=== PATIENT | female | born 1945 | race Caucasian/White ===

== ENCOUNTER 2024-03-26 17:15 | Emergency (ER) | payer OTHER, SELFPAY ==
[2024-03-26 17:25] VITALS: BP 144/67
--- NOTE | 2024-03-26 18:33 | ED.GENMED ---
History of Present Illness
General
Chief Complaint: Facial Problem
Source: patient and spouse
Time Seen by Provider: 03/26/24 18:25
Travel History
Have you had any contact with someone who has COVID-19?: No
Do you have any symptoms of coronavirus? Fever > 100 degrees, chills, cough, shortness of breath, sore throat, loss of taste or smell, muscle aches, or headache?: No
History of Present Illness
History of Present Illness:
78-year-old female presents to the emergency room for evaluation after a fall. Patient was attempting to ascend a high curb with her rolling walker when she lost her balance and fell forward. She suffered an injury to her upper lip and front
tooth. She does not take any oral anticoagulants. She not strike her head. Aside from her mouth she has no other complaints.
Past History
Past History
ED Past Medical History: HTN and Hypercholesterolemia
ED Past Surgical History: None
Social History
Tobacco: Non-smoker
Alcohol: Occasional
Personal:
Living: with family
Phy Exam
Physical Exam
Physical Exam:
General: Awake, Alert, Oriented X3. No acute distress.
Vitals: unremarkable
Head: Atraumatic
Mouth: Small superficial laceration noted on the upper lip just to the left of the midline. There is no laceration noted on the buccal mucosa. There is an Mack 1 fracture of tooth #8
Eyes: Pupils equal, EOMI
Throat: Airway intact, no exudates
Neck: Trachea midline, no tenderness palpation of the midline spine. No pain with range of motion
Lungs: Clear and equal b/l
Heart: Regular rate, no murmurs
Abd: Soft, Nontender, No pulsatile mass
Neuro: Nonfocal
Skin: Warm, dry, no rash
Extremities: pulses equal b/l, no edema
Course
Vital Signs
Initial and Last Documented VS:
Initial Vital Signs
Temp Pulse Resp BP Pulse Ox
98.2 F 67 18 144/67 99
03/26/24 17:25 03/26/24 17:25 03/26/24 17:25 03/26/24 17:25 03/26/24 17:25
Last Documented Vital Signs
Temp Pulse Resp BP Pulse Ox
98.2 F 67 18 144/67 99
03/26/24 17:25 03/26/24 17:25 03/26/24 17:25 03/26/24 17:25 03/26/24 17:25
MDM/Problems Addressed
Differential Diagnosis Includes:
Dental fracture, through and through lip laceration, superficial lip laceration
MDM/Problems Addressed:
Patient presents with dental injury and lip injury. She has no evidence of any other significant head trauma. She has no neck pain. Therefore imaging is not indicated in my opinion. Recommend dental follow-up. Tetanus is up-to-date as she had a
tetanus shot about 1 month ago.
*Critical Care Note
Total Time (30-74mins, 75-104mins- exclusive of procedures): Not Applicable
ED Attending Note
-
Portions of this chart may have been created with voice recognition software.� Occasional wrong word or��sound alike� substitutions may have occurred due to the inherent limitations of voice recognition software.
Discharge Plan
Departure
Patient Disposition: Home (Routine Discharge)
Date of Disposition: 03/26/24
Time of Disposition: 18:40
Patient with high blood pressure during this ER visit?: Yes
Condition: Good
Discharge Problem:
Tooth fracture, Abrasion of lip
Instructions: Fractured Tooth (DC), Abrasions ED
Prescriptions:
No Action
sennosides [senna] 8.6 MG tablet
17.2 mg PO HS
trazodone 50 MG tablet
50 mg PO HS
polyethylene glycol 3350 17 GRAMS powder in packet
17 grams PO DAILY
oxycodone-acetaminophen 5 MG/325 MG tablet
1 tab PO Q6HPRN PRN (Reason: back pain)
ascorbic acid (vitamin C) [Vitamin C] 500 MG tablet
500 mg PO DAILY
lidocaine 1 PATCH adhesive patch,medicated
1 patch topical Q12H
losartan [Cozaar] 100 MG tablet
100 mg PO DAILY
rosuvastatin 5 MG tablet
5 mg PO MOWEFR
escitalopram oxalate 5 MG tablet
5 mg PO DAILY
cholecalciferol (vitamin D3) 2,000 UNITS tablet
2,000 units PO DAILY
omega 5-uff-pje-fish oil [Fish Oil] 1 EACH capsule
1 ea PO DAILY
Referrals:
Jenny Veras DO [Family Provider] -
Interventions
Interventions:
*Risk Screen - Suicide Last Done: 03/26/24 18:25
*General Assessment Last Done: 03/26/24 18:25
*Neglect/Abuse Screening Last Done: 03/26/24 18:25
ED- Fall Risk Assessment Last Done: 03/26/24 18:57
*Nursing Disposition Last Done: 03/26/24 18:57
ED- Neurological Assessment Last Done: 03/26/24 18:25
ED-Skin Assessment Last Done: 03/26/24 18:25
Discharge Date and Time
Discharge Date/Time: 03/26/24 18:57
Print Language: LATVIAN
== END 2024-03-26 18:57 | disposition home or self-care (01) ==
LOC: EMR 17:15
PROVIDERS: EMERGENCY PHYSICIAN Emergency Medicine; FAMILY PHYSICIAN Internal Medicine
DX: S02.5XXA Fracture of tooth (traumatic), initial encounter for closed fracture (principal); S00.511A Abrasion of lip, initial encounter; W19.XXXA Unspecified fall, initial encounter; I10 Essential (primary) hypertension
CPT/HCPCS: 99283

== ENCOUNTER 2025-05-20 04:12 | Emergency (ER) | payer OTHER, SELFPAY ==
[2025-05-20 04:16] VITALS: BP 152/73; BMI 28.0
--- NOTE | 2025-05-20 06:31 | ED.MUSCINJ ---
HPI-Injury
General
Chief Complaint: Fall
Source: patient and family
Exam Limitations: dementia
Time Seen by Provider: 05/20/25 06:12
Nursing documentation reviewed up to this point in time: agreed with
History of Present Illness-Injury
Is this injury a work related problem?: No
Is pt an associate of [facility]?: No
Initial Injury comments:
79 female fall at [facility] dementia unit struck her head, details are unclear she is at her baseline per her son-in-law, moves all extremities knows her name
Past History
Past History
ED Past Medical History: HTN, Hypercholesterolemia and Other (Dementia)
ED Past Surgical History: None
Social History
Tobacco: Non-smoker
Alcohol: Occasional
Personal:
Living: with family
Employment: Not employed
Family History
Family History: Other (Dementia)
Review of Systems
Review of Systems
Allergies reviewed?: Yes
Unable to obtain full review of systems at this time due to: dementia
Other source history: family
All Other Systems: Not applicable
Phy Exam
Physical Exam
Physical Exam:
Physical Exam
General: no apparent distress, not acutely ill
Neck: 3 cm superficial vertical laceration of the left forehead
Heart: Regular
Lungs: no acute respiratory distress. clear bilaterally
Abdomen: Not tender
Neuro: Demented knows her name moves all extremity
Skin: no rash
Psychiatric: well kept. interactive and cooperative
Extremities: No pain with range of motion of the hips
Injury Course
Orders/Labs/Results
Orders:
Orders
05/20/25 04:19
CT Cervical Spine W/o Iv Contr Urgent
Comment:
Reason For Exam: fall
CT Head W/o Iv Contrast Urgent
Comment:
Reason For Exam: fall
05/20/25 06:30
Tetanus/Diphth/Acelpertussis [Adacel] 0.5 ml IM .ONCE ONE
Procedures
Laceration Closure
forehead:
Status of Wound: clean
Size of Wound in cm: 2.5
Description of Wound Edges: sharp
Preparation: cleaned with saline
Revision/Debridement: minor revision
Wound exploration: explored to base- no FB
Type of Closure: Dermabond-skin glue
MDM/Problems Addressed
Differential Diagnosis Includes:
Fall, head injury, C-spine injury, laceration
MDM/Problems Addressed:
Fall lac
Chronic conditions affecting care:
Dementia
Acute Exacerbation and/or Progression of Chronic Illness:
Dementia
*Radiology
Radiology exam reviewed: radiology read reviewed
*Pulse Oximetry
SaO2: 100
Oxygen Mode of Delivery: Room air
Patient hypoxic: no
*Critical Care Note
Total Time (30-74mins, 75-104mins- exclusive of procedures): Not Applicable
Update Note
Update Note:
Update appears to be at her baseline will update tetanus, CT head cervical spine patient reports noted will provide wound care
ED Attending Note
-
Portions of this chart may have been created with voice recognition software.� Occasional wrong word or��sound alike� substitutions may have occurred due to the inherent limitations of voice recognition software.
Discharge Plan
Departure
Patient Disposition: Home (Routine Discharge)
Date of Disposition: 05/20/25
Time of Disposition: 06:34
Patient with high blood pressure during this ER visit?: No
Condition: Good
Discharge Problem:
Head injury
Instructions: Head Injury in Adults (DC), Laceration Repair With Glue (DC)
Prescriptions:
No Action
sennosides [senna] 8.6 MG tablet
17.2 mg PO HS
trazodone 50 MG tablet
50 mg PO HS
polyethylene glycol 3350 17 GRAMS powder in packet
17 grams PO DAILY
oxycodone-acetaminophen 5 MG/325 MG tablet
1 tab PO Q6HPRN PRN (Reason: back pain)
ascorbic acid (vitamin C) [Vitamin C] 500 MG tablet
500 mg PO DAILY
lidocaine 1 PATCH adhesive patch,medicated
1 patch topical Q12H
losartan [Cozaar] 100 MG tablet
100 mg PO DAILY
rosuvastatin 5 MG tablet
5 mg PO MOWEFR
escitalopram oxalate 5 MG tablet
5 mg PO DAILY
cholecalciferol (vitamin D3) 2,000 UNITS tablet
2,000 units PO DAILY
omega 8-nso-bdf-fish oil [Fish Oil] 1 EACH capsule
1 ea PO DAILY
Referrals:
Jenny Veras DO [Family Provider, Internal Medicine]
Interventions
Interventions:
*Risk Screen - Suicide Last Done: 05/20/25 04:19
*General Assessment Last Done: 05/20/25 04:19
*Neglect/Abuse Screening Last Done: 05/20/25 04:19
*ED COVID-19 Vaccine History Last Done: 05/20/25 04:19
ED-Musculoskeletal Assessment Last Done: 05/20/25 04:30
ED- Neurological Assessment Last Done: 05/20/25 04:30
ED-Skin Assessment Last Done: 05/20/25 04:30
Discharge Date and Time
Print Language: BURMESE
[2025-05-20] MEDS: ADACEL 0.5 ML IM (06:33)
[2025-05-20 06:38] VITALS: BP 145/83
[2025-05-20 06:59] VITALS: BP 168/87
--- NOTE | 2025-05-20 07:50 | EDRN ---
I did get through to ' alyse' who tried to reach the nurse for me but also was unsuccessful. I gave the discharge paperwork to her LIZ who is here with her .
--- NOTE | 2025-05-20 08:09 | EDRN ---
Call placed again to [phone] ( nurse line for the [place] area)- busy signal
== END 2025-05-20 09:54 | disposition home or self-care (01) ==
LOC: EMR 04:12
PROVIDERS: EMERGENCY PHYSICIAN Emergency Medicine; FAMILY PHYSICIAN Internal Medicine
DX: S09.90XA Unspecified injury of head, initial encounter (principal); S01.81XA Laceration without foreign body of other part of head, initial encounter; W19.XXXA Unspecified fall, initial encounter; Z23 Encounter for immunization; E78.00 Pure hypercholesterolemia, unspecified; F03.90 Unspecified dementia, unspecified severity, without behavioral disturbance, psychotic disturbance, mood disturbance, and anxiety; I10 Essential (primary) hypertension
CPT/HCPCS: 99284; 12011; 90471; 70450; 72125; 90715